=== PATIENT | female | born 1945 | race Caucasian/White ===

== ENCOUNTER → 2025-02-09 | Outpatient (CLI) | payer MEDICARE, SELFPAY ==
[2025-02-09 12:43] LABS: Hematocrit 42.4 % (37-47); Hemoglobin 13.8 g/dL (12.0-15.0); Immature Granulocytes Count 0.020 X10^3/uL (0.0-0.0); Mean Corp Hgb Conc 32.5 g/dL (32-36); Mean Corpuscular Volume 91.6 fL (81-99); Mean Platelet Vol. 11.3 fl (6.2-12.0); NRBC Flagged by Analyzer 0 % (0-5); POSITIVE DIFFERENTIAL YES; POSITIVE MORPHOLOGY YES; Platelet Count 214 K/mm3 (150-450); RBC Distribution Width CV 13.4 % (11.6-14.6); RBC Distribution Width SD 45.1 fl (35.1-43.9); Red Blood Count 4.63 M/mm3 (4.2-5.4); White Blood Count 13.6 K/mm3 (4.4-11.0)
[2025-02-09 12:48] LABS: Differential Indicated SCAN CRITERIA MET
[2025-02-09 13:11] LABS: PTHIN 81 pg/mL (11-61)
[2025-02-09 13:57] LABS: AST(SGOT) 26 U/L (<=31); Alanine Aminotransfer ALT/SGPT 18 U/L (<=34); Albumin, Serum 4.3 g/dL (3.4-4.8); Alkaline Phosphatase 96 U/L (35-104); Anion Gap 13 (5-15); BUN 12 mg/dL (4-19); BUN/Creat Ratio 15.0 RATIO (10-20); Calcium,Total 9.3 mg/dL (7.6-11.0); Carbon Dioxide 23.3 mmol/L (21.0-32.0); Chloride 102 mmol/L (98-108); Globulin 2.6 g/dL (2.2-4.2); Glucose 100 mg/dL (70-99); Potassium 4.5 mmol/L (3.3-5.1); Vitamin D,25 Hydroxy 60.8 ng/mL (30-100)
[2025-02-09 16:36] LABS: Cholesterol 240 mg/dL (<=200); Low Density Lipoprotein Calc. 136 mg/dL; Triglycerides 80 mg/dL; Very Low Density Lipoprotein 16 mg/dL (5-40); cholesterol:hdl ratio screen 2.74
== END | disposition home or self-care (01) ==
LOC: BIMLAB 11:25
PROVIDERS: PCP Internal Medicine; Referring Provider Internal Medicine Endocrinology, Diabetes & Metabolism; Visit Provider Internal Medicine Endocrinology, Diabetes & Metabolism
DX: E03.9 Hypothyroidism, unspecified (principal); Z13.6 Encounter for screening for cardiovascular disorders; M81.0 Age-related osteoporosis without current pathological fracture; E55.9 Vitamin D deficiency, unspecified; Z87.442 Personal history of urinary calculi
CPT/HCPCS: 36415; 80053; 80061; 82306; 83970; 85025

== ENCOUNTER → 2025-02-12 | Outpatient (CLI) | payer MEDICARE, SELFPAY ==
[2025-02-12 12:41] LABS: (24 HR) Urine Calcium 131.0 mg/24 HR (42.0-353.0); 24 HR UR COLLECTION TIME 24.0 HR (24.0-24.0); 24HR UR TOTAL VOLUME 1350 ml; Calcium Urine pH Range 2
== END | disposition home or self-care (01) ==
PROVIDERS: PCP Internal Medicine; Referring Provider Internal Medicine Endocrinology, Diabetes & Metabolism; Visit Provider Internal Medicine Endocrinology, Diabetes & Metabolism
DX: E21.3 Hyperparathyroidism, unspecified (principal)
CPT/HCPCS: 81050; 82340